=== PATIENT | male | born 1975 | race Caucasian/White ===

== ENCOUNTER 2021-01-11 12:18 | Emergency (ER) | payer SELFPAY | END 2021-01-11 14:02 | disposition left against medical advice (07) | LOC: ER 12:18 | DX: S70.352A Superficial foreign body, left thigh, initial encounter (principal); X58.XXXA Exposure to other specified factors, initial encounter; Y93.89 Activity, other specified; Y92.89 Other specified places as the place of occurrence of the external cause; Y99.8 Other external cause status; Z53.21 Procedure and treatment not carried out due to patient leaving prior to being seen by health care provider ==